=== PATIENT | female | born 1960 | race Caucasian/White ===

== ENCOUNTER → 2024-02-17 | Outpatient (CLI) | payer BC ==
[2024-02-17 19:47] LABS: Creatinine, Urine Random 66.9 mg/dL (27.00-270.00)
[2024-02-17 19:50] LABS: Microalb/Creat Ratio UR, Rand 18.685 mg/g (0.000-30.000); Microalbumin, Random Urine 12.5 mg/L (0.000-20.000)
== END ==
LOC: LAB SHORT 17:20 → LAB 17:20
PROVIDERS: Family Medicine
DX: I10 Essential (primary) hypertension (principal)
CPT/HCPCS: 82043; 82570